=== PATIENT | female | born 1975 | race Two or more races ===

== ENCOUNTER 2016-12-05 13:56 | Inpatient (IN) | payer MEDICAID, OTHER ==
[~2016-12-05] VITALS: Ht 152.4 cm; Wt 73.0 kg
[2016-12-05 14:06] VITALS: BP 133/50
[2016-12-05] MEDS ORDERED: IBUPROFEN 600 MG TAB ONE (14:26)
--- NOTE | 2016-12-05 16:09 | NUR ---
Pt taken to bed 8.
[2016-12-05] MEDS ORDERED: KETOROLAC 30 MG/ML VIAL IVP ONE (16:20)
--- NOTE | 2016-12-05 16:22 | NUR ---
41/F c/o headache and right sided body pain x1 week. Pt states the pain is generalized to the right side of her body, 12/15. Pt also c/o right upper quadrant abd pain, pressure, generalized to right side of body, continuous. Denies vomiting or diarrhea but c/o nausea. AOX4, estonian speaking. VSS.
[2016-12-05 16:44] LABS: BASOPHILS # (AUTO) 0.1 K/uL (0.00-0.22); BASOPHILS % (AUTO) 0.5 % (0.0-2.0); EOSINOPHILS # (AUTO) 0.2 K/uL (0-0.4); EOSINOPHILS % (AUTO) 1.2 % (0.0-4.0); HEMATOCRIT 44.3 % (36-48); HEMOGLOBIN 14.5 g/dL (12.0-16.0); LYMPHOCYTES # (AUTO) 1.4 K/uL (2.5-16.5); LYMPHOCYTES % (AUTO) 9.2 % (20.5-51.1); MEAN CORPUSCULAR HEMOGLOBIN 28 pg (27-31); MEAN CORPUSCULAR HGB CONC 33 g/dL (33-37); MEAN CORPUSCULAR VOLUME 87 fL (80-94); MONOCYTES # (AUTO) 0.7 K/uL (0.8-1.0); MONOCYTES % (AUTO) 4.5 % (1.7-9.3); NEUTROPHILS # (AUTO) 12.8 K/uL (1.8-7.7); NEUTROPHILS % (AUTO) 84.6 % (42.2-75.2); PLATELET COUNT (AUTO) 283 K/uL (140-450); RED BLOOD CELL COUNT(AUTO) 5.09 MIL/uL (4.20-5.40); RED CELL DISTRIBUTION WIDTH 11.8 % (11.6-13.7); WHITE BLOOD COUNT (AUTO) 15.1 K/uL (4.8-10.8)
[2016-12-05 16:51] LABS: APPEARANCE,URINE CLEAR (CLEAR); BILIRUBIN,URINE NEGATIVE (NEGATIVE); BLOOD, URINE 2+ (NEGATIVE); COLOR,URINE YELLOW (YELLOW); LEUKOCYTE ESTERASE ,URINE NEGATIVE (NEGATIVE); NITRITE, URINE NEGATIVE (NEGATIVE); PROTEIN,URINE NEGATIVE (NEGATIVE); UGLUCOSE NEGATIVE (NEGATIVE); UROBILINOGEN,URINE 0.2 EU/dL (0.2 - 1)
[2016-12-05 16:53] LABS: ANION GAP 12.8 (8-16); CALCIUM 8.5 mg/dL (8.5-10.1); CARBON DIOXIDE 26.8 mmol/L (21-32); POTASSIUM 3.6 mmol/L (3.5-5.1)
[2016-12-05 16:54] LABS: BACTERIA,URINE 2+ /HPF (None Seen); SQUAMOUS EPITHELIAL CELL,UR 0-5 /LPF (0-3 (FEW)); WBC,URINE 0-5 /HPF (0-5)
[2016-12-05 16:59] LABS: ALBUMIN 3.9 g/dL (3.4-5.0); TOTAL BILIRUBIN 0.7 mg/dL (0.0-1.0); TOTAL PROTEIN, SERUM 8.3 g/dL (6.4-8.2)
--- NOTE | 2016-12-05 16:59 | NUR ---
MEDICATED FOR HEADACHE AND LOW BACK PAIN
--- NOTE | 2016-12-05 17:19 | NUR ---
Pt states no improvement from pain medication. Dr. Fitzpatrick made aware.
[2016-12-05] MEDS ORDERED: HYDROmorphone 1 MG/ML AMP IVP ONE (17:25)
[2016-12-05] MEDS ORDERED: cefTRIAXone 1,000 MG VIAL ONE (17:39)
--- NOTE | 2016-12-05 17:55 | NUR ---
Pt back from CT scan.
[2016-12-05] MEDS ORDERED: NACL 0.9% 1,000 ML IV ONE (18:00)
--- NOTE | 2016-12-05 18:15 | NUR ---
CRITICAL CT RESULTS ABD/PELVIS READ AND CONFIRMED BY DR. SALAZAR
--- NOTE | 2016-12-05 18:51 | NUR ---
Patient appears to be resting comfortably in bed. VSS.
[2016-12-05] MEDS ORDERED: ONDANSETRON 4 MG/2 ML VIAL IVP PRN (18:55)
[2016-12-05] MEDS ORDERED: MORPHINE SULFATE 2 MG/ML SYR IVP PRN (18:55)
[2016-12-05] MEDS ORDERED: HYDROmorphone 1 MG/ML AMP IVP PRN (18:55)
[2016-12-05] MEDS ORDERED: LORazepam 2 MG/ML VIAL IVP PRN (18:55)
--- NOTE | 2016-12-05 19:23 | NUR ---
Pt report given to Garland WASHINGTON. Transfer of care at this time.
[2016-12-05] MEDS ORDERED: ONDANSETRON 4 MG/2 ML VIAL IVP ONE (19:25)
--- NOTE | 2016-12-05 20:06 | NUR ---
Note bryan in EDM - 12/05/16 at 2008 by ELSIE Patient will be admitted to care of DR BRIDGES. Admited to TELE 111A. Will go to room 111A. Belongings list completed. Report to JACKIE WASHINGTON .
--- NOTE | 2016-12-05 20:06 | NUR ---
Patient will be admitted to care of DR BRIDGES. Admited to MS 109A. Will go to room 109A. Belongings list completed. Report to JACKIE WASHINGTON .
--- NOTE | 2016-12-05 20:15 | NUR ---
PT ARRIVED TO THE UNIT IN WHEEL CHAIR. INITIAL ASSESSMENT COMPLETED. PT AAOX4. PT DENIES PAIN AT THIS TIME. PT STATES THAT HER SKIN IS INTACT. SHE IS WEARING PANTS AND DOES NOT WANT TO REMOVE THEM. PT HAS IV ON LEFT AC G 20; ASYMPTOMATIC, PATENT AND INTACT. ORIENTED PT TO ROOM AND SURROUNDINGS AND USE OF CALL LIGHT. EXPLAINED PLAN OF CARE TO PT AND SHE VERBALIZES UNDERSTANDING. WILL CONTINUE TO MONITOR PT.
--- NOTE | 2016-12-05 22:15 | NUR ---
PT STATES THAT SHE IS TIRED AND SHE WILL TRY TO GO TO SLEEP. CALL LIGHT WITHIN REACH.
[2016-12-05] MEDS: NACL 0.9% 1,000 ML IV SCH (22:52)
[2016-12-06] VITALS: BP 135/73
--- NOTE | 2016-12-06 00:17 | NUR ---
CHECKED ON PT. VS STABLE. WILL CONTINUE TO MONITOR PT.
[2016-12-06] MEDS: ACETAMINOPHEN 325 MG TAB PO PRN ×2 (03:37→23:31)
--- NOTE | 2016-12-06 03:37 | NUR ---
PT HAS A FEVER OF 101.5 WILL MEDICATE ORDERED.
--- NOTE | 2016-12-06 04:30 | NUR ---
RECHECKED PT'S TEMPERATURE AND IT IS NOW 99.2 WILL CONTINUE TO MONITOR PT.
[2016-12-06] MEDS: NACL 0.9% 1,000 ML IV SCH ×3 (04:52→22:55)
--- NOTE | 2016-12-06 06:27 | NUR ---
PT STABLE, PT AFEBRILE AT THIS TIME. WILL CONTINUE TO MONITOR PT.
[2016-12-06 06:35] LABS: BASOPHILS # (AUTO) 0.1 K/uL (0.00-0.22); BASOPHILS % (AUTO) 0.7 % (0.0-2.0); EOSINOPHILS # (AUTO) 0.2 K/uL (0-0.4); EOSINOPHILS % (AUTO) 1.2 % (0.0-4.0); HEMATOCRIT 38.7 % (36-48); HEMOGLOBIN 13.1 g/dL (12.0-16.0); LYMPHOCYTES # (AUTO) 1.6 K/uL (2.5-16.5); LYMPHOCYTES % (AUTO) 11.3 % (20.5-51.1); MEAN CORPUSCULAR HEMOGLOBIN 29 pg (27-31); MEAN CORPUSCULAR HGB CONC 34 g/dL (33-37); MEAN CORPUSCULAR VOLUME 86 fL (80-94); MONOCYTES # (AUTO) 0.9 K/uL (0.8-1.0); MONOCYTES % (AUTO) 6.2 % (1.7-9.3); NEUTROPHILS % (AUTO) 80.6 % (42.2-75.2); PLATELET COUNT (AUTO) 239 K/uL (140-450); RED BLOOD CELL COUNT(AUTO) 4.51 MIL/uL (4.20-5.40); RED CELL DISTRIBUTION WIDTH 11.7 % (11.6-13.7); WHITE BLOOD COUNT (AUTO) 13.8 K/uL (4.8-10.8)
[2016-12-06 07:00] LABS: CALCIUM 7.8 mg/dL (8.5-10.1); CARBON DIOXIDE 24.3 mmol/L (21-32); CREATININE 0.9 mg/dL (0.6-1.3); MAGNESIUM 1.7 mg/dL (1.8-2.4); POTASSIUM 3.3 mmol/L (3.5-5.1); TOTAL BILIRUBIN 0.4 mg/dL (0.0-1.0); TOTAL PROTEIN, SERUM 6.9 g/dL (6.4-8.2)
--- NOTE | 2016-12-06 07:01 | NUR ---
PATIENT HAS BEEN SCREENED AND CATEGORIZED MODERATE NUTRITION RISK. PATIENT WILL BE SEEN WITHIN 3-5 DAYS OF ADMISSION. 12/08/16-12/10/16 JOHANNE BALTAZAR MS, RDN
--- NOTE | 2016-12-06 07:10 | NUR ---
ENDORSED PLAN OF CARE TO DAY SHIFT NURSE. PT IN STABLE CONDITION.
--- NOTE | 2016-12-06 07:11 | NUR ---
RECEIVED REPORT FROM THE MAINTENANCE ELECTRICIAN NURSE AT BEDSIDE FOR CONTINUITY OF CARE. PT IS ASLEEP. NOTED THE WET WASH CLOTH ON HER FOREHEAD. PER MAINTENANCE ELECTRICIAN NURSE, PT HAD A FEVER BUS ATTENDANT. PT IV ON L AC 20G NS 100ML/HR. INTACT AND PATENT. WILL BE BACK TO REASSESS PT.
--- NOTE | 2016-12-06 07:35 | NUR ---
PT IS AWAKE AND ORIENTED X4. INTRODUCED MYSELF AND UPDATED THE BOARD. V/S WITHIN NORMAL RANGE. PT IS AMBULATORY, SKIN INTACT. V/S WITHIN NORMAL RANGE. AFEBRILE. DENIES PAIN. WILL BE BACK WITH MORNING MEDS.
[2016-12-06 08:00] VITALS: BP 97/51
[2016-12-06] MEDS: ENOXAPARIN 40 MG/0.4 ML SYR SUBQ SCH (08:45)
--- NOTE | 2016-12-06 08:50 | NUR ---
ADMINISTERED MORNING MEDS. PT TOLERATED WELL. WILL CONTINUE TO MONITOR PT.
[2016-12-06] MEDS: HYDROcodone/APAP 5/325 MG 1 TAB TAB PO PRN ×3 (09:08→22:55)
--- NOTE | 2016-12-06 10:32 | NUR ---
Social Service Note: Per Blood Bank Business Manager Brittany, patient's previous medical group was [facility] and now it is [facility].
--- NOTE | 2016-12-06 10:32 | NUR ---
PT SLEEPING SOUNDLY. NO SIGN OF DISTRESS. SPOUSE AT BEDSIDE SLEEPING WELL. WILL CONTINUE TO MONITOR PT.
--- NOTE | 2016-12-06 12:17 | NUR ---
PT SLEEPING SOUNDLY. NO SIGNS OF DISTRESS. SPOUSE STILL AT BEDSIDE. FLUID ALMOST EMPTY. WILL CHANGE. WILL CONTINUE TO MONITOR PT.
[2016-12-06] MEDS ORDERED: POTASSIUM CHLORIDE 10 MEQ TABER PO SCH (12:50)
[2016-12-06 13:14] LABS: PROTHROMBIN TIME 10.4 secs (10.8-13.4)
--- NOTE | 2016-12-06 13:30 | NUR ---
U/S CALLED. ORDER FOR ABD US. WILL NEED TO BE NPO FOR 6-8 HRS. NOTIFIED PT. WILL HOLD DINNER UNTIL US IS DONE AND SHE CAN HAVE IT WHEN SHE RETURNS. TENTATIVELY AROUND 7-8PM.
[2016-12-06 16:00] VITALS: BP 123/65
--- NOTE | 2016-12-06 18:07 | NUR ---
PT C/O OF BEING WARM AND HAS PAIN. PT HAS A FEVER OF 100.1F. WILL GIVE NORCO.
--- NOTE | 2016-12-06 19:17 | NUR ---
ENDORSED PT TO THE DISTRIBUTION AGENT NURSE AT BEDSIDE FOR CONTINUITY OF CARE. PT IN STABLE CONDITION. CALLED [facility] AND L/M TO BRING UP ANOTHER DINNER TRAY FOR POST U/S.
--- NOTE | 2016-12-06 19:26 | NUR ---
RECEIVED FROM AM RN IN BED AWAKE AND ALERT. ABLE TO VERBALIZE NEEDS WELL. DX. PYELONEPHRITIS AND RENAL MASS. IVF SITE TO LAC INTACT AND NO INFILTRATION NOTED. RE-ORIENTED TO CALL LIGHT USE AND CARE PLANS FOR THE NIGHT DISCUSSED WITH HER. NO COMPLAINT AT THIS TIME.
--- NOTE | 2016-12-06 22:36 | NUR ---
SLEEPING AT THIS TIME. CALL LIGHT WITH IN REACH.
[2016-12-07 00:17] VITALS: BP 117/73
--- NOTE | 2016-12-07 03:51 | NUR ---
SLEEPING. NO RESTLESSNESS. CALL LIGHT WITH IN REACH.
[2016-12-07 06:46] LABS: BASOPHILS # (AUTO) 0.1 K/uL (0.00-0.22); EOSINOPHILS # (AUTO) 0.3 K/uL (0-0.4); EOSINOPHILS % (AUTO) 2.5 % (0.0-4.0); HEMATOCRIT 36.2 % (36-48); HEMOGLOBIN 12.3 g/dL (12.0-16.0); LYMPHOCYTES # (AUTO) 2.9 K/uL (2.5-16.5); LYMPHOCYTES % (AUTO) 25.2 % (20.5-51.1); MEAN CORPUSCULAR HEMOGLOBIN 30 pg (27-31); MEAN CORPUSCULAR HGB CONC 34 g/dL (33-37); MEAN CORPUSCULAR VOLUME 87 fL (80-94); MONOCYTES # (AUTO) 0.9 K/uL (0.8-1.0); MONOCYTES % (AUTO) 7.7 % (1.7-9.3); NEUTROPHILS # (AUTO) 7.1 K/uL (1.8-7.7); NEUTROPHILS % (AUTO) 63.6 % (42.2-75.2); PLATELET COUNT (AUTO) 232 K/uL (140-450); RED BLOOD CELL COUNT(AUTO) 4.18 MIL/uL (4.20-5.40); RED CELL DISTRIBUTION WIDTH 11.4 % (11.6-13.7); WHITE BLOOD COUNT (AUTO) 11.3 K/uL (4.8-10.8)
[2016-12-07 06:53] LABS: ALBUMIN 2.7 g/dL (3.4-5.0); ANION GAP 10.5 (8-16); CALCIUM 7.5 mg/dL (8.5-10.1); CARBON DIOXIDE 27.3 mmol/L (21-32); CREATININE 0.8 mg/dL (0.6-1.3); POTASSIUM 3.8 mmol/L (3.5-5.1); TOTAL BILIRUBIN 0.2 mg/dL (0.0-1.0); TOTAL PROTEIN, SERUM 6.6 g/dL (6.4-8.2)
--- NOTE | 2016-12-07 07:01 | NUR ---
STILL SLEEPING. WAKES UP EASILY WHEN TOUCHED. NO FURTHER COMPLAINTS DONE. AFEBRILE ON MY SHIFT. ABLE TO USE CALL LIGHT FOR HELP. A/O X 4.
--- NOTE | 2016-12-07 07:25 | NUR ---
RECEIVED REPORT FROM ELECTRIC ORGAN CHECKER NURSE AT BEDSIDE FOR CONTINUITY OF CARE. PT IS AWAKE AND ORIENTED. INTRODUCED MYSELF AND UPDATED THE BOARD. PT V/S WITHIN NORMAL RANGE. AFEBRILE. DENIES PAIN. SKIN INTACT. LBM YESTERDAY. IV L AC 2O0G NS AT 100ML. WANTED TO KNOW IF SHE IS GOING HOME TODAY. WILL CONTINUE TO MONITOR PT.
[2016-12-07 08:00] VITALS: BP 102/64
[2016-12-07] MEDS: ENOXAPARIN 40 MG/0.4 ML SYR SUBQ SCH (08:38)
[2016-12-07] MEDS: NACL 0.9% 1,000 ML IV SCH (08:42)
--- NOTE | 2016-12-07 08:45 | NUR ---
ADMINISTERED MORNING MEDS. PT TOLERATED WELL. WILL CONTINUE TO MONITOR PT.
--- NOTE | 2016-12-07 10:15 | NUR ---
IV PUMP BEEPING. FLUSHED IV SITE. RECONNECTED IV AND RESTARTED PUMP.
--- NOTE | 2016-12-07 12:10 | NUR ---
IV INFILTRATED. INSTRUCTOR AND STUDENT RESTARTED IV L HAND 22G. NS AT 100 INFUSING. PT TOLERATED WELL.
--- NOTE | 2016-12-07 14:10 | NUR ---
NEW IV START. PT C/O OF HER NEW IV BOTHERING HER. INSTRUCTOR AND STUDENT RESTARTED NEW IV R FA 22G. PT TOLERATED WELL.
--- NOTE | 2016-12-07 15:52 | NUR ---
INSTRUCTED PT REGARDING D/C ORDERS FROM . SHE STATED HER RIDE CAN COME AROUND 5 PM. WILL START DC .
[2016-12-07 16:00] VITALS: BP 100/60
--- NOTE | 2016-12-07 17:10 | NUR ---
WENT OVER DISCHARGE INSTRUCTIONS WITH PT. PT VERBALIZED UNDERSTANDING. ANSWERED ALL QUESTIONS. REMOVED IV,CANNULA INTACT. NO BLEEDING NOTED. PT TOLERATED WELL. WILL GET DRESSED AND GATHER ALL PERSONAL BELONGINGS. WILL LET ME KNOW ONCE SHE IS READY TO GO. Addendum: 12/07/16 at 1726 by Tejal Tylre RN REMOVED ALL ARM ID BANDS.
--- NOTE | 2016-12-07 17:35 | NUR ---
PT WALKED OUT OF THE HOSPITAL ACCOMPANIED BY SPOUSE AND DEMONSTRATOR SALES. PT HAS ALL PERSONAL BELONGINGS WITH HER. PT IS IN STABLE CONDITION.
--- NOTE | 2016-12-08 14:58 | NUR ---
CM NOTE FAXED ER PHYSICIAN DOCUMENTATION AND DISCHARGE INSTRUCTIONS TO [facility] [phone] [place] DIAMOND [phone] NOVEM[place] [phone]
== END 2016-12-07 17:35 | disposition home or self-care (01) ==
LOC: MED 13:56 → MTU 18:56
PROVIDERS: ADMIT Hospitalist; ATTEND Hospitalist
DX: K80.80 Other cholelithiasis without obstruction (principal)
CPT/HCPCS: 36415; 71020; 76705; 76770; 80053; 81001; 81025; 82150; 83690; 83735; 84703; 85025; 85610; 87081; 87086; 87804; 96361; 96365; 96375; 99285; J0696; J1170; J1650; J1885; J2405; J7030; J7060; Q0092; Q9967

== ENCOUNTER 2017-02-07 22:16 | Emergency (ER) | payer OTHER ==
[~2017-02-07] VITALS: Ht 152.4 cm; Wt 79.4 kg
--- NOTE | 2017-02-07 22:16 | NUR ---
Patient was BIBA at this time.
[2017-02-07 22:25] VITALS: BP 114/74
--- NOTE | 2017-02-07 22:36 | NUR ---
Stephan adams in [facility] - 02/07/17 at 2251 by MARIKA Patient taken to bed 04 via ingrid per EMS.
--- NOTE | 2017-02-07 22:52 | NUR ---
Patient being taken to XRAY /CT via wheelchair per tech.
--- NOTE | 2017-02-07 23:17 | NUR ---
Patient back from XRAY /CT via wheelchair per tech--to bed 04.
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
--- NOTE | 2017-02-07 23:26 | NUR ---
Stephan adams in [facility] - 02/07/17 at [address] Ospina evaluating patient at bedside.
[2017-02-07] MEDS ORDERED: KETOROLAC 60 MG/2 ML VIAL IM ONE (23:40)
[2017-02-08 00:52] VITALS: BP 119/76
== END 2017-02-08 00:51 | disposition home or self-care (01) ==
LOC: MED 22:16
DX: S16.1XXA Strain of muscle, fascia and tendon at neck level, initial encounter (principal); S39.012A Strain of muscle, fascia and tendon of lower back, initial encounter; R11.0 Nausea; V49.49XA Driver injured in collision with other motor vehicles in traffic accident, initial encounter; Y93.89 Activity, other specified; Y92.89 Other specified places as the place of occurrence of the external cause; Y99.8 Other external cause status
CPT/HCPCS: 70450; 72100; 72125; 96372; 99284; J1885

== ENCOUNTER 2019-05-23 12:29 | Emergency (ER) | payer OTHER ==
[~2019-05-23] VITALS: Ht 152.4 cm; Wt 63.5 kg
[2019-05-23 13:05] VITALS: BP 113/72
--- NOTE | 2019-05-23 14:01 | NUR ---
PT AMBULATED TO CHAIR C.
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
[2019-05-23] MEDS ORDERED: KETOROLAC 30 MG/ML VIAL IM ONE (14:30)
[2019-05-23] MEDS ORDERED: DEXAMETHASONE 10 MG/ML VIAL IM ONE (14:30)
[2019-05-23 15:05] VITALS: BP 119/84
--- NOTE | 2019-05-23 15:06 | NUR ---
Patient discharged with v/s stable. Written and verbal after care instructions given and explained. Patient alert, oriented and verbalized understanding of instructions. Ambulatory* with steady gait. All questions addressed prior to discharge. ID band removed. Patient advised to follow up with PMD. Rx of MOTRIN, PROMETHAZINE given. Patient educated on indication of medication including possible reaction and side effects. Opportunity to ask questions provided and answered.
== END 2019-05-23 15:06 | disposition home or self-care (01) ==
LOC: MED 12:29
DX: S29.012A Strain of muscle and tendon of back wall of thorax, initial encounter (principal); J06.9 Acute upper respiratory infection, unspecified; V89.2XXA Person injured in unspecified motor-vehicle accident, traffic, initial encounter; Y93.89 Activity, other specified; Y92.410 Unspecified street and highway as the place of occurrence of the external cause; Y99.8 Other external cause status
CPT/HCPCS: 81002; 81025; 96372; 99283; J1100; J1885

== ENCOUNTER 2020-12-04 15:48 | Inpatient (IN) | payer OTHER, SELFPAY ==
[~2020-12-04] VITALS: Ht 152.4 cm; Wt 72.6 kg
[2020-12-04 15:59] VITALS: BP 129/88
--- NOTE | 2020-12-04 16:05 | NUR ---
PT A/C ASSISTED TO BED 1
--- NOTE | 2020-12-04 16:10 | NUR ---
45 Y/O FEMALE C/O ABDOMINAL PAIN RADIATING TO BACK PAIN WITH N/V X TODAY (1200). DENIES DYSURIA. PAIN IS IN EPIGASTRIC REGION. PT RATES PAIN 10/10. ON ASSESSMENT, ABD IS FLAT, SOFT, AND TENDER ON PALPATION WITH GAURDING. PT DENIES FEVER/DIARRHEA. PT STATES THAT SHE ATE MOLE EARLIER TODAY WITH FAMILY BUT SHE IS THE ONLY ONE C/O SYMPTOMS. PT A/O X4 WITH EVEN AND UNLABORED RESPIRATIONS. PT IN GOWN. BED IN LOWEST POSITION, BRAKES LOCKED, X1 SIDERAIL UP. PMH: DENIES SX:UTERUS REMOVAL NKDA
--- NOTE | 2020-12-04 16:13 | NUR ---
DR AGUIRRE AT BEDSIDE EVALUATING PT
[2020-12-04] MEDS ORDERED: ONDANSETRON 4 MG/2 ML VIAL IVP ONE (16:20)
[2020-12-04] MEDS ORDERED: DICYCLOMINE 10 MG CAP PO ONE (16:20)
[2020-12-04] MEDS ORDERED: ALUMINUM HYD/MAG/SIMETHICONE 30 ML UDC PO ONE (16:20)
[2020-12-04] MEDS ORDERED: NACL 0.9% 1,000 ML IV ONE (16:20)
[2020-12-04] MEDS ORDERED: LIDOCAINE VISCOUS 2% 20 ML UDC PO ONE (16:20)
[2020-12-04] MEDS ORDERED: MORPHINE SULFATE 4 MG/ML SYR IVP ONE (16:20)
[2020-12-04 16:38] LABS: BASOPHILS # (AUTO) 0.1 K/uL (0.00-0.22); BASOPHILS % (AUTO) 0.7 % (0.0-2.0); EOSINOPHILS # (AUTO) 0.4 K/uL (0-0.4); EOSINOPHILS % (AUTO) 3.3 % (0.0-4.0); HEMATOCRIT 42.4 % (36-48); HEMOGLOBIN 14.2 g/dL (12.0-16.0); LYMPHOCYTES # (AUTO) 2.5 K/uL (2.5-16.5); LYMPHOCYTES % (AUTO) 22.6 % (20.5-51.1); MEAN CORPUSCULAR HEMOGLOBIN 30 pg (27-31); MEAN CORPUSCULAR HGB CONC 34 g/dL (33-37); MEAN CORPUSCULAR VOLUME 88.4 fL (80-94); MONOCYTES # (AUTO) 0.5 K/uL (0.8-1.0); MONOCYTES % (AUTO) 4.7 % (1.7-9.3); NEUTROPHILS # (AUTO) 7.5 K/uL (1.8-7.7); NEUTROPHILS % (AUTO) 68.7 % (42.2-75.2); PLATELET COUNT (AUTO) 274 K/uL (140-450); RED BLOOD CELL COUNT(AUTO) 4.79 MIL/uL (4.20-5.40); RED CELL DISTRIBUTION WIDTH 12.9 % (11.6-13.7); WHITE BLOOD COUNT (AUTO) 10.9 K/uL (4.8-10.8)
--- NOTE | 2020-12-04 16:40 | NUR ---
MEDICATED PER ERMDS ORDER, TOLERATED WELL.
[2020-12-04 17:13] LABS: ALBUMIN 3.9 g/dL (3.4-5.0); ANION GAP 10.8 (8-16); CARBON DIOXIDE 28.4 mmol/L (21-32); CREATININE 0.9 mg/dL (0.6-1.3); POTASSIUM 4.2 mmol/L (3.5-5.1); TOTAL BILIRUBIN 0.2 mg/dL (0.0-1.0)
--- NOTE | 2020-12-04 17:29 | NUR ---
US AT BEDSIDE
--- NOTE | 2020-12-04 17:56 | NUR ---
PT AMBULATED TO RESTROOM WITH STEADY GAIT
[2020-12-04] MEDS ORDERED: PIPERACILLIN/TAZOBACTAM 3.375 GM in DEXTROSE 5% 50 ML IV ONE (18:45)
--- NOTE | 2020-12-04 18:50 | NUR ---
PT BOYFRIEND AT BEDSIDE
[2020-12-04] MEDS ORDERED: cefTRIAXone 1,000 MG VIAL ONE (18:59)
--- NOTE | 2020-12-04 19:18 | NUR ---
REPORT GIVEN TO AVE WASHINGTON, TRANSFER OF CARE AT THIS TIME.
--- NOTE | 2020-12-04 19:25 | NUR ---
TO CT VIA W/C
--- NOTE | 2020-12-04 19:35 | NUR ---
RETURNED FROM CT
[2020-12-04] MEDS ORDERED: PIPERACILLIN/TAZOBACTAM 3.375 GM VIAL IV ONE (19:40)
[2020-12-04] MEDS ORDERED: MORPHINE SULFATE 4 MG/ML SYR IVP PRN (20:55)
[2020-12-04] MEDS ORDERED: HYDROcodone/APAP 5/325 MG 1 TAB TAB PO PRN (20:55)
[2020-12-04] MEDS ORDERED: ONDANSETRON 4 MG/2 ML VIAL IVP PRN (20:55)
[2020-12-04] MEDS ORDERED: ACETAMINOPHEN 325 MG TAB PO PRN (20:55)
[2020-12-04] MEDS ORDERED: MORPHINE SULFATE 2 MG/ML SYR IVP PRN (20:55)
--- NOTE | 2020-12-04 21:11 | NUR ---
LARRY SWAB OBTAINED AND SENT TO LAB
[2020-12-04] MEDS: LACTATED RINGERS 1,000 ML IV SCH (22:27)
[2020-12-04] MEDS ORDERED: HYDROmorphone 1 MG/ML AMP IVP PRN (22:55)
--- NOTE | 2020-12-04 23:10 | NUR ---
DR. CARRERA AT BEDSIDE FOR EXAM
--- NOTE | 2020-12-04 23:39 | NUR ---
CALLED REPORT PADMINI NAVARRO. ETA TO FLOOR APPROXIMATELY 5-10 MINS.
--- NOTE | 2020-12-04 23:52 | NUR ---
TO 104B VIA W/C ACCOMPANIED BY EMT
--- NOTE | 2020-12-04 23:55 | NUR ---
ER NURSE CALLED REPORT GIVEN. BROUGHT PATIENT VIA WHEELCHAIR. AWAKE, ALERT ORIENTED X4. CC: RIGHT UPPER QUADRANT PAIN RADIATING TO RIGHT EPIGASTRIC REGION. NO SOB NOTED. RESPIRATION EVEN UNLABORED. LUNGS CLEAR UPON AUSCULTATION. BOWEL SOUNDS PRESENT IN ALL 4 QUADRANT. MRSA SCREENING DONE. VITAL SIGNS TAKEN. STARTED IVF OF LACTATED RINGERS AT 80 ML/HR. INSTRUCTED PATIENT TO BE NPO AFTER MIDNIGHT WITH UNDERSTANDING. PATIENT IS AMBULATORY. SKIN IS INTACT. ORIENTED TO ROOM, RESTROOM, CALL LIGHT, TV AND STAFF. V/S: 127/72,58, 18, 97.9, 95% RA.
[2020-12-05] MEDS: LACTATED RINGERS 1,000 ML IV SCH ×2 (00:45→21:55)
[2020-12-05 04:00] VITALS: BP 115/59
[2020-12-05] MEDS ORDERED: PIPERACILLIN/TAZOBACTAM 3.375 GM VIAL IV ONE ×2 (04:57→13:40)
[2020-12-05] MEDS: PIPERACILLIN/TAZOBACTAM 3.375 GM in DEXTROSE 5% 50 ML IV SCH ×3 (05:12→22:44)
[2020-12-05 06:01] LABS: BASOPHILS % (AUTO) 0.4 % (0.0-2.0); EOSINOPHILS # (AUTO) 0.4 K/uL (0-0.4); EOSINOPHILS % (AUTO) 3.6 % (0.0-4.0); HEMATOCRIT 39.2 % (36-48); HEMOGLOBIN 13.2 g/dL (12.0-16.0); LYMPHOCYTES # (AUTO) 2.8 K/uL (2.5-16.5); LYMPHOCYTES % (AUTO) 28.3 % (20.5-51.1); MEAN CORPUSCULAR HEMOGLOBIN 30 pg (27-31); MEAN CORPUSCULAR HGB CONC 34 g/dL (33-37); MEAN CORPUSCULAR VOLUME 90.2 fL (80-94); MONOCYTES # (AUTO) 0.5 K/uL (0.8-1.0); NEUTROPHILS # (AUTO) 6.2 K/uL (1.8-7.7); NEUTROPHILS % (AUTO) 62.7 % (42.2-75.2); PLATELET COUNT (AUTO) 250 K/uL (140-450); RED BLOOD CELL COUNT(AUTO) 4.35 MIL/uL (4.20-5.40); RED CELL DISTRIBUTION WIDTH 12.7 % (11.6-13.7); WHITE BLOOD COUNT (AUTO) 9.9 K/uL (4.8-10.8)
[2020-12-05 06:06] LABS: ALBUMIN 3.1 g/dL (3.4-5.0); ANION GAP 9.9 (8-16); CARBON DIOXIDE 28.1 mmol/L (21-32); CREATININE 0.9 mg/dL (0.6-1.3); TOTAL BILIRUBIN 0.5 mg/dL (0.0-1.0)
--- NOTE | 2020-12-05 07:30 | NUR ---
ENDORSED TO AM NURSE FOR CONTINUITY OF CARE. PATIENT IS STABLE.
--- NOTE | 2020-12-05 07:33 | NUR ---
RECEIVED REPORT FROM NIGHT NURSE PT IS SLEEPING ON ROOM AIR, SKIN INTACT ON NPO, IV INTACT ON LEFT FA WITH LACTATED RINGERS AT 80 MLS/HR. LAST BOWEL MOVEMENT ON 12/04 AND FOR SURGERY TODAY. SAFETY MEASURES IN PLACE AND CALL LIGHT WITHIN REACH. WILL CONTINUE TO MONITOR.
[2020-12-05 08:00] VITALS: BP 107/60
--- NOTE | 2020-12-05 08:52 | NUR ---
PATIENT HAS BEEN SCREENED AND CATEGORIZED LOW NUTRITION RISK. PATIENT WILL BE SEEN WITHIN 7 DAYS OF ADMISSION. 12/11/[address]
--- NOTE | 2020-12-05 09:40 | NUR ---
PT OUT IN HER ROOM FOR SURGERY LAP AMANDA BY DR CARRERA, CONSENT SIGNED BY PATIENT AND SURGEON.
[2020-12-05] MEDS ORDERED: BUPIVACAINE-MPF/EPI 0.25% 30 ML VIAL INJ ONE (09:53)
[2020-12-05] MEDS ORDERED: LIDOCAINE 1% 500 MG/50 ML VIAL ONE (09:53)
[2020-12-05] MEDS ORDERED: BUPIVACAINE-MPF 0.25% 30 ML VIAL INJ ONE (09:55)
[2020-12-05] MEDS ORDERED: PROPOFOL 200 MG/20 ML VIAL IV ONE (09:58)
[2020-12-05] MEDS ORDERED: MIDAZOLAM 2 MG/2 ML VIAL ONE (09:58)
[2020-12-05] MEDS ORDERED: HYDROmorphone PFS 2 MG/ML SYR ONE ×2 (09:58→11:40)
[2020-12-05] MEDS ORDERED: ROCURONIUM 50 MG/5 ML VIAL IV ONE (09:58)
[2020-12-05] MEDS ORDERED: GLYCOPYRROLATE 0.2 MG/ML VIAL ONE ×2 (09:59→11:00)
[2020-12-05] MEDS ORDERED: DEXAMETHASONE 4 MG/ML VIAL ONE (10:18)
[2020-12-05] MEDS ORDERED: ONDANSETRON 4 MG/2 ML VIAL ONE (10:18)
[2020-12-05] MEDS ORDERED: NEOSTIGMINE 1:1000 10 MG/10 ML VIAL ONE (11:00)
[2020-12-05] MEDS ORDERED: ceFAZolin 1,000 MG VIAL ONE (11:00)
[2020-12-05] MEDS: DEXT 5% / NACL 0.45% 1,000 ML IV SCH ×2 (11:40→19:40)
[2020-12-05] MEDS ORDERED: HYDROmorphone 1 MG/ML AMP IVP PRN (11:40)
[2020-12-05] MEDS ORDERED: ONDANSETRON 4 MG/2 ML VIAL IVP PRN ×2 (11:40)
[2020-12-05] MEDS: HYDROmorphone 1 MG/ML AMP IVP PRN ×4 (11:41→12:11)
--- NOTE | 2020-12-05 12:45 | NUR ---
PT ARRIVED FROM SURGERY. REPORT GIVEN BY COMBAT SYSTEMS OPERATORPADMINI LOVE. ACOORDING TO PADMINI LOVE PT WAS GIVEN 2000ML OF LR. THERE AR E4 INCISIONS COVERED WITH BANDAIDS ON ABDOMEN. 2G OF ANCEF , 2MG DILAUDID, 30 MG EFEDRAN, 2MG VERSED, 4MG ZOFRAN, 150 MG OF PROPOFOL WAS GIVEN. PT WAS STRAIGHT CATH. PT IS AWAKE AND REPORTS NO PAIN. VS ARE BP:115/54, CO:69, 02:97%RA, TEMP:97.7, RR:17. PT IS ASKING FOR FOOD AND FLUIDS. CALL LIGHT IS WITHIN REACH, SAFETY PROTOCOLS IN PLACE. WILL CONTINUE TO MONITOR.
--- NOTE | 2020-12-05 12:45 | NUR ---
PATIENT BACK IN HER ROOM ACCOMPANIED BY FLORI OR NURSE S/P ALMA ROSA PATEL BY DR CARRERA, 4 BAND AIDS. CHECK VITAL SIGNS BP 115/54 NJ 60 OXYGEN SATURATION 975. PT DENIES ANY PAIN AND NO DISTRESS NOTED.
[2020-12-05] MEDS: KETOROLAC 30 MG/ML VIAL IVP SCH ×2 (13:00→22:44)
--- NOTE | 2020-12-05 14:32 | NUR ---
medication due given pt is resting and no distress noted
--- NOTE | 2020-12-05 16:00 | NUR ---
PATIENT ASSISTED TO THE RESTROOM AND ABLE TO AMBULATE NO DISTRESS NOTED. WILL CONTINUE TO MONITOR
[2020-12-05 17:19] VITALS: BP 110/56
--- NOTE | 2020-12-05 19:20 | NUR ---
RECD. RESTING IN BED, AWAKE, A/OX4. RESPIRATION EVEN AND UNLABORED. IV OF D5 0.45% INFUSING AT 125 ML/HR, LEFT FOREARM. G22. S/P LAP CHOLECYSTECTOMY, INCISION IN THE ABDOMEN (4) COVERED WITH BAND AID DRESSING, ALL DRY AND INTACT. ON BILATERAL LED SEQUENTIALS, PAIN IN THE ABDOMEN 1/10, STATED TOLERABLE. INSTRUCTED TO CALL NURSE WHEN NEEDING HELP OR MEDICATIONS. VERBALIZED UNDERSTANDING. AT THE BEDSIDE.
--- NOTE | 2020-12-05 19:20 | NUR ---
ENDORSED TO NIGHT NURSE FOR CONTINUITY OF CARE PT IS STABLE.
[2020-12-05 20:00] VITALS: BP 111/58
--- NOTE | 2020-12-05 21:00 | NUR ---
ASSISTED OUT OF BED TO AMBULATE TO THE BR. VOIDED MODERATE AMOUNT OF CLEAR YELLOW URINE. BACK TO BED AFTER VOIDING. WARM BLANKET GIVEN REQUESTED.
--- NOTE | 2020-12-05 21:30 | NUR ---
REVIEWED PLAN OF CARE WITH BRAKE REPAIRER ALF COCHRAN, WILL CONTINUE WITH POC.
--- NOTE | 2020-12-05 22:40 | NUR ---
VERIFIED PT NAME AND BIRTHDATE. ASSESSED FOR ALLERGIES, KNA. ASSESSED FOR PAIN, RATES 6/10 AT ABDOMEN WITHOUT RADIATION. HUNG IVPB ANTIBIOTICS AND ADMINISTERED IV PUSH PAIN MEDS FOR PATIENT. SIGNED OFF FOR MIGUELITO MILNER.
--- NOTE | 2020-12-05 23:40 | NUR ---
COMFORTABLE IN BED, PAIN IN THE ABDOMEN 1/10, STATED TOLERABLE.
[2020-12-06] VITALS: BP 114/62
--- NOTE | 2020-12-06 | NUR ---
SLEEPING COMFORTABLY IN BED.
[2020-12-06] MEDS: DEXT 5% / NACL 0.45% 1,000 ML IV SCH ×4 (01:30→21:13)
--- NOTE | 2020-12-06 02:00 | NUR ---
ASSISTED TO AMBULATE TO THE BR. TO VOID, ALREADY PASSING GAS BUT NO BM YET. TEACHINGS GIVEN ON THE IMPORTANCE OF EARLY AMBULATION FOR RECOVERY. VERBALIZED UNDERSTANDING.
--- NOTE | 2020-12-06 04:00 | NUR ---
RESPIRATION EVEN AND UNLABORED. COMFORTABLY ASLEEP IN BED.
[2020-12-06] MEDS: PIPERACILLIN/TAZOBACTAM 3.375 GM in DEXTROSE 5% 50 ML IV SCH ×3 (05:40→21:12)
[2020-12-06] MEDS: KETOROLAC 30 MG/ML VIAL IVP SCH (05:50)
[2020-12-06 05:51] LABS: BASOPHILS % (AUTO) 0.2 % (0.0-2.0); HEMATOCRIT 36.8 % (36-48); HEMOGLOBIN 12.4 g/dL (12.0-16.0); LYMPHOCYTES # (AUTO) 1.4 K/uL (2.5-16.5); LYMPHOCYTES % (AUTO) 10.7 % (20.5-51.1); MEAN CORPUSCULAR HEMOGLOBIN 30 pg (27-31); MEAN CORPUSCULAR HGB CONC 34 g/dL (33-37); MEAN CORPUSCULAR VOLUME 88.6 fL (80-94); MONOCYTES # (AUTO) 0.6 K/uL (0.8-1.0); MONOCYTES % (AUTO) 4.3 % (1.7-9.3); NEUTROPHILS # (AUTO) 10.9 K/uL (1.8-7.7); NEUTROPHILS % (AUTO) 84.8 % (42.2-75.2); PLATELET COUNT (AUTO) 229 K/uL (140-450); RED BLOOD CELL COUNT(AUTO) 4.16 MIL/uL (4.20-5.40); RED CELL DISTRIBUTION WIDTH 12.7 % (11.6-13.7); WHITE BLOOD COUNT (AUTO) 12.9 K/uL (4.8-10.8)
[2020-12-06 05:53] LABS: CARBON DIOXIDE 26.9 mmol/L (21-32); CREATININE 0.8 mg/dL (0.6-1.3); POTASSIUM 3.9 mmol/L (3.5-5.1)
--- NOTE | 2020-12-06 07:10 | NUR ---
CONDITION REMAIN STABLE. ENDORSED TO AM SHIFT NURSE FOR CONTINUITY OF CARE.
--- NOTE | 2020-12-06 07:22 | NUR ---
PT ENDORSED BY DOOR LINER NURSE FOR CONTINUITY OF CARE. POC DISCUSSED. PT IS ASLEEP IN BED ON ROOM AIR WITH CHEST RISING AND FALLING EVEN AND UNLABORED. NO S/S OF ACUTE DISTRESS. PT IS S/P FROM LAPORSCOPIC CHOLECYSTECTOMY ON 12/05/20, 4 ABD INCISIONS WITH DRESSING DRY AND INTACT. ENDORSED D/C TODAY, KEEP DRESSING DRY FOR 48HRS, F/U WITH SURGEON IN 7-10 DAYS. PT HAS A LEFT FA 18 GAUGE RUNNING D5 0.45 NS AT 100ML. ALL SAFETY MEASURES IN PLACE, CALL LIGHT WITHIN REACH. WILL CONTINUE TO MONITOR.
[2020-12-06 08:00] VITALS: BP 110/54
--- NOTE | 2020-12-06 08:35 | NUR ---
PT ASSESSED, PT REPORTS TOLERABLE PAIN. PT IS ALERT AND ORIENTED X4. DRESSING ON ABD IS DRY AND INTACT. PT IV SITE IS PATENT, AND INTACT. ALL SAFETY MEASURES IN PLACE, CALL LIGHT WITHIN REACH. WILL CONTINUE TO MONITOR.
--- NOTE | 2020-12-06 09:58 | NUR ---
PT HAD A BOWEL MOVEMENT. SHEETS CHANGED, PT GIVEN NEW GOWN. ALL SAFETY MEASURES IN PLACE. CALL LIGHT WITHIN REACH. WILL CONTINUE TO MONITOR.
[2020-12-06] MEDS: LACTATED RINGERS 1,000 ML IV SCH ×2 (10:25→22:55)
--- NOTE | 2020-12-06 11:24 | NUR ---
PT REQUESTING CRANBERRY JUICE, CRANBERRY JUICE BROUGHT TO BEDSIDE. PT REPORTS 1 BM, AND ALL OTHER NEEDS ARE MET. SAFETY MEASURES IN PLACE, CALL LIGHT WITHIN REACH WILL CONTINUE TO MONITOR.
--- NOTE | 2020-12-06 13:06 | NUR ---
PT REPORTS ALL NEEDS MET, ANNY ABX ADMINISTERED. PT EDUCATION PROVIDED. SAFETY MEASURES IN PLACE, CALL LIGHT WITHIN REACH. WILL CONTINUE TO MONITOR.
--- NOTE | 2020-12-06 14:39 | NUR ---
PT REQUESTING CRANBERRY JUICE, ALL OTHER NEEDS MEET. PT IN STABLE CONDITION, ALL SAFETY MEASURES IN PLACE, CALL LIGHT WITHIN REACH WILL CONTINUE TO MONITOR.
--- NOTE | 2020-12-06 15:39 | NUR ---
PT FAMILY AT BEDSIDE. PT REPORTS ALL NEEDS MET, SAFETY MEASURES IN PLACE. CALL LIGHT WITHIN REACH. WILL CONTINUE TO MONITOR.
[2020-12-06 16:00] VITALS: BP 144/66
--- NOTE | 2020-12-06 17:02 | NUR ---
PT STATING SHES HUNGRY, SALAD, JELLO, AND APPLE SAUCE WITH CRANBERRY JUICE BROUGHT TO BEDSIDE. ALL OTHER NEEDS MET, DOES NOT REPORT PAIN. ALL SAFETY MEASURES IN PLACE, CALL LIGHT WITHIN REACH. WILL CONTINUE TO MONITOR.
--- NOTE | 2020-12-06 17:55 | NUR ---
PT IS ASLEEP WITH NO SIGNS OF ACUTE DISTRESS, SAFETY MEASURES IN PLACE, CALL LIGHT WITHIN REACH. WILL CONTINUE TO MONITOR.
--- NOTE | 2020-12-06 19:21 | NUR ---
PT ENDORSED TO MASTER ESTHETICIAN NURSE IN STABLE CONDITION
--- NOTE | 2020-12-06 19:22 | NUR ---
RECEIVED REPORT FROM AM NURSE. PATIENT AWAKE IN BED RESTING. VISITOR AT BEDSIDE. IVF OF 1/2 NS AT 100 ML/HR ON THE LEFT FOREARM INFUSING WELL. NO SOB NOTED. DENIES PAIN. WILL CONTINUE TO MONITOR.
--- NOTE | 2020-12-06 21:00 | NUR ---
IV LINE ON THE LFA INFILTRATED. INSERTED IV LINE ON THE RIGHT HAND. TOLERATED WELL.
--- NOTE | 2020-12-06 21:12 | NUR ---
ADMINISTERED SCHEDULED MEDS ORDERED.
--- NOTE | 2020-12-07 02:34 | NUR ---
CHECKED PATIENT, ASLEEP
[2020-12-07] MEDS: DEXT 5% / NACL 0.45% 1,000 ML IV SCH ×2 (03:40→05:35)
[2020-12-07] MEDS: PIPERACILLIN/TAZOBACTAM 3.375 GM in DEXTROSE 5% 50 ML IV SCH (05:35)
--- NOTE | 2020-12-07 07:18 | NUR ---
ENDORSED TO AM NURSE FOR CONTINUITY OF CARE. PATIENT STABLE.
[2020-12-07 08:00] VITALS: BP 108/69
--- NOTE | 2020-12-07 08:00 | NUR ---
RECEIVED REPORT FROM VIROLOGIST FOR CONTINUITY OF CARE. PATIENT ALERT AWAKE ORIENTED X4, NOT IN NAY DISTRESS NOTED. WITH IVF ON GOING AND INFUSING WELL. DENIES PAIN. DISCUSSED THE PLAN OF CARE. POSSIBLE DC TODAY. NEEDS ATTENDED. CALL LIGHT WITHIN REACH. WILL CONTINUE TO MONITOR.
--- NOTE | 2020-12-07 10:44 | NUR ---
PATIENT RESTING IN BED. WAITING FOR MD.
--- NOTE | 2020-12-07 12:00 | NUR ---
PATIENT IV INFILTRATED, REFUSED TO BE RE-INSERTED, SHES'S GOING HOME TODAY.
--- NOTE | 2020-12-07 12:03 | NUR ---
RESTING IN BED, DENIES PAIN. WILL CONTINUE TO MONITOR.
[2020-12-07] MEDS ORDERED: HYDR-5080 PO (15:37)
[2020-12-07] MEDS ORDERED: CIPR500T4 PO (15:38)
[2020-12-07] MEDS ORDERED: PHE25I PO (15:38)
[2020-12-07] MEDS ORDERED: IBUP-2213 PO (15:39)
--- NOTE | 2020-12-07 16:04 | NUR ---
IV REMOVED, DISCHARGE INSTRUCTION AND PRESCRIPTION GIVEN AND VERBALIZED UNDERSTANDING. WAITING FOR THE TO PICK HER UP.
--- NOTE | 2020-12-07 17:15 | NUR ---
HERE TO DIRECTOR OF SAFETY PATIENT. IN STABLE CONDITION.
== END 2020-12-07 17:15 | disposition home or self-care (01) | DRG 263 ==
LOC: MED 15:48 → MMU 21:41 → MTU 23:11
PROVIDERS: ADMIT Hospitalist; ATTEND Hospitalist
PROC: 0DNW4ZZ Release Peritoneum, Percutaneous Endoscopic Approach (ICD-10-PCS; 2020-12-05)
PROC: 0FT44ZZ Resection of Gallbladder, Percutaneous Endoscopic Approach (ICD-10-PCS; principal; 2020-12-05 10:00)
DX: K80.00 Calculus of gallbladder with acute cholecystitis without obstruction (principal); I10 Essential (primary) hypertension; N20.0 Calculus of kidney; K66.0 Peritoneal adhesions (postprocedural) (postinfection); Z20.822 Contact with and (suspected) exposure to COVID-19; Z90.710 Acquired absence of both cervix and uterus; Z85.528 Personal history of other malignant neoplasm of kidney
CPT/HCPCS: 36415; 76705; 80048; 80053; 82374; 83690; 85025; 87040; 87081; 88304; 93005; 96365; 96367; 96375; 99285; J0690; J0696; J1100; J1170; J1885; J2001; J2250; J2270; J2405; J2543; J2704; J2710; J3490; J7030; J7060

== ENCOUNTER 2022-10-18 18:11 | Emergency (ER) | payer OTHER ==
[~2022-10-18] VITALS: Ht 152.4 cm; Wt 65.8 kg
[~2022-10-18 18:11] MED LIST: CIPR500T4 PO; HYDR-5080 PO; IBUP-2213 PO; PHE25I PO
[2022-10-18 18:16] VITALS: BP 139/86
[2022-10-18] MEDS ORDERED: predniSONE 20 MG TAB PO ONE (18:30)
[2022-10-18] MEDS ORDERED: FAMOTIDINE 20 MG TAB PO ONE (18:30)
[2022-10-18 19:31] LABS: APPEARANCE,URINE CLEAR (CLEAR); BILIRUBIN,URINE NEGATIVE (NEGATIVE); BLOOD, URINE 2+ (NEGATIVE); COLOR,URINE YELLOW (YELLOW); LEUKOCYTE ESTERASE ,URINE NEGATIVE (NEGATIVE); NITRITE, URINE NEGATIVE (NEGATIVE); UGLUCOSE NEGATIVE (NEGATIVE)
[2022-10-18] MEDS ORDERED: PRED20TA5 PO (20:04)
[2022-10-18] MEDS ORDERED: LORA10SG1 PO (20:04)
[2022-10-18] MEDS ORDERED: DIPH25TA53 PO (20:04)
[2022-10-18 20:11] VITALS: BP 139/86
--- NOTE | 2022-10-18 20:11 | NUR ---
Patient discharged with v/s stable. Written and verbal after care instructions given and explained. Patient alert, oriented and verbalized understanding of instructions. Ambulatory with steady gait. All questions addressed prior to discharge. ID band removed. Patient advised to follow up with PMD. Rx of BENADRYL, CLARITIN, DELTASONE given. Patient educated on indication of medication including possible reaction and side effects. Opportunity to ask questions provided and answered.
== END 2022-10-18 20:11 | disposition home or self-care (01) ==
LOC: MED 18:11
DX: R21 Rash and other nonspecific skin eruption (principal); R31.9 Hematuria, unspecified; M54.9 Dorsalgia, unspecified; Z79.899 Other long term (current) drug therapy; Z85.528 Personal history of other malignant neoplasm of kidney
CPT/HCPCS: 81001; 81003; 81025; 99284; J7512; Q0163